=== PATIENT | female | born 1995 | race Caucasian/White ===

== ENCOUNTER 2024-02-29 14:03 | Emergency (ER) | payer OTHER, SELFPAY ==
[2024-02-29 14:19] VITALS: BP 127/91; PULSE 89; RESP 18; TEMP 37.2; O2SAT 100; BMI 20.8
[2024-02-29 14:22] LABS: Appearance Urine Clear (Clear); Bilirubin Urine Negative (Negative); Blood Urine Negative (Negative); Color Urine Yellow (Yellow); Glucose Urine Negative (Negative); Ketones Urine 2+ (Negative); Leukocyte Esterase Urine Negative (Negative); Nitrite Urine Negative (Negative); Protein Urine Trace (Negative); Specific Gravity Urine >= 1.030 (1.000-1.030); Urobilinogen Urine 0.2 (0.2-1.0); pH Urine 5.5 (5.0-8.5)
[2024-02-29 14:31] LABS: RBC Urine 0-2 (0-2); WBC Urine 0-2 (0-5)
[2024-02-29 14:32] LABS: Squamous Epithelial Cell Urine Moderate (None-Few)
[2024-02-29 14:33] LABS: Bacteria Urine Few; Mucus Urine Many
--- NOTE | 2024-02-29 20:08 | ED_ITS ---
HPI - General Adult General Chief complaint: Urogenital Problems, Female Stated complaint: UTI Time Seen by Provider: 02/29/24 16:20 History of Present Illness HPI narrative: LWBS Related Data Allergies Allergy/AdvReac Type Severity Reaction Status Date / Time No Known Drug Allergies Allergy Verified 02/29/24 14:19 Exam Const: Vital Signs, click to edit/add: Vital Signs - 24 hr 02/29/24 14:19 Temperature 99 F Pulse Rate [Pulse Oximeter] 89 Respiratory Rate 18 Blood Pressure [Ri ght Upper Arm] 127/91 H Pulse Oximetry 100 Oxygen Delivery Me thod Room Air Course Vital Signs Vital signs: Initial Vital Signs Temperature 99 F 02/29/24 14:19 Temperature Source Temporal Artery Scan 02/29/24 14:19 Pulse Rate 89 02/29/24 14:19 Respiratory Rate 18 02/29/24 14:19 Blood Pressure 127/91 H 02/29/24 14:19 Blood Pressure Mean 103 02/29/24 14:19 Blood Pressure Position Sitting 02/29/24 14:19 Pulse Oximetry 100 02/29/24 14:19 Oxygen Delivery Method Room Air 02/29/24 14:19 Vital Signs Temperature 99 F 02/29/24 14:19 Pulse Rate 89 02/29/24 14:19 Respiratory Rate 18 02/29/24 14:19 Blood Pressure 127/91 H 02/29/24 14:19 Pulse Oximetry 100 02/29/24 14:19 Oxygen Delivery Method Room Air 02/29/24 14:19 Temperature 99 F 02/29/24 14:19 Pulse Rate 89 02/29/24 14:19 Respiratory Rate 18 02/29/24 14:19 Blood Pressure 127/91 H 02/29/24 14:19 Pulse Oximetry 100 02/29/24 14:19 Oxygen Delivery Method Room Air 02/29/24 14:19 Medical Decision Making Lab Data Labs: Lab Results 02/29/24 Range/Units 14:15 Urine Color Yellow (Yellow) Urine Appearance Clear (Clear) Urine pH 5.5 (5.0-8.5) Ur Specific Dwight >= 1.030 (1.000-1.030) Urine Protein Trace A (Negative) Urine Glucose (UA) Negative (Negative) Urine Ketones 2+ A (Negative) Urine Blood Negative (Negative) Urine Nitrite Negative (Negative) Urine Bilirubin Negative (Negative) Urine Urobilinogen 0.2 (0.2-1.0) Ur Leukocyte Esterase Negative (Negative) Urine RBC 0-2 (0-2) Urine WBC 0-2 (0-5) Ur Squamous Epith Cells Moderate A (None-Few) Urine Bacteria Few A (None) Urine Mucus Many A (None) Discharge Plan Discharge Patient Disposition: Left Without Being Seen
== END 2024-02-29 16:20 | disposition left against medical advice (07) ==
PROVIDERS: Emergency Provider Emergency Medicine
DX: Z53.21 Procedure and treatment not carried out due to patient leaving prior to being seen by health care provider (principal)
CPT/HCPCS: 81001; 87086; 99281